=== PATIENT | female | born 2000 | race Caucasian/White ===

== ENCOUNTER 2022-11-23 11:04 | Emergency (ER) | payer MEDICAID ==
[~2022-11-23] VITALS: Ht 162.6 cm; Wt 118.0 kg
[2022-11-23 11:13] VITALS: O2SAT 99
[2022-11-23] MEDS ORDERED: ACETAMINOPHEN 325MG TABLET PO ONE (11:30)
[2022-11-23 12:48] VITALS: BP 136/81; PULSE 62; RESP 16; TEMP 98
== END 2022-11-23 12:55 | disposition home or self-care (01) ==
LOC: ER 11:04
DX: S80.02XA Contusion of left knee, initial encounter (principal); W18.30XA Fall on same level, unspecified, initial encounter; Y93.89 Activity, other specified; Y92.89 Other specified places as the place of occurrence of the external cause; Y99.8 Other external cause status
CPT/HCPCS: 73560; 81025; 99283